=== PATIENT | male | born 1990 | race Caucasian/White ===

== ENCOUNTER → 2023-06-23 | Emergency (ER) | payer OTHER ==
--- NOTE | 2023-06-23 14:52 | RAD REPORT ---
EXAM DESCRIPTION: CT - Head C Spine Mpr Wo Con - 06/23/2023 2:24 pm CLINICAL HISTORY: Head and neck injury status post fall. Head and neck pain COMPARISON: None. TECHNIQUE: Computed axial tomography of the head and cervical spine was obtained. Sagittal and coronal reconstruction was performed. All CT scans are performed using dose optimization technique as appropriate and may include automated exposure control or mA/KV adjustment according to patient size. FINDINGS: An intracranial bleed is not seen. The ventricles are normal in caliber. No significant hypodensity within the brain. An extra-axial fluid collection is not noted. Fluid within the visualized sinuses and mastoids is not seen Avulsion fracture C7 spinous process. No additional fracture or dislocation noted IMPRESSION: No acute intracranial abnormality is seen. Avulsion fracture C7 spinous process has more of a chronic than acute appearance. This should be sushila elated clinically. If the patient continues to have symptoms to suggest intracranial /spinal cord pathology then MRI wou ld be recommended
--- NOTE | 2023-06-23 15:08 | RAD REPORT ---
EXAM DESCRIPTION: Teodoro Single View06/23/2023 2:33 pm CLINICAL HISTORY: Chest pain COMPARISON: none FINDINGS: The lungs appear clear of acute infiltrate. The heart is normal size IMPRESSION: No acute abnormalities displayed
--- NOTE | 2023-06-23 15:16 | EDPHYS ---
Physician Documentation [facility] Name: Virgil Soni Age: 32 yrs Sex: Male : 1990 Arrival Date: 06/23/2023 Time: 14:02 Bed 11 Private MD: ED Physician Luba Brown HPI: 06/22 14:26 This 32 yrs old Male presents to ER via [employer] with complaints of head injury. sp3 14:26 32-year-old male with no known significant past medical history presents from local [facility] for chief complaint headache and loss of consciousness secondary to mechanical ground-level fall he sustained yesterday at 4 PM. He also states that he has been having epigastric pain secondary to taking naproxen daily. There is supposed to change the medication but have not yet. This is not related to his chief complaint. Patient denies any other symptoms including fever, URI symptoms, muscular pain, back pain, abdominal pain, bleeding, or any other signs or symptoms on ROS at this time.. Historical: - Allergies: 14:09 No Known Allergies; mb9 - Home Meds: 14:09 None [Active]; mb9 - PMHx: 14:09 None; mb9 - PSHx: 14:09 None; mb9 - Immunization history:: Adult Immunizations up to date. - Social history:: Smoking status: Patient denies any tobacco usage or history of. ROS: 14:28 Constitutional: Negative for fever, chills, and weight loss, Eyes: Negative for injury, sp3 pain, redness, and discharge, ENT: Negative for injury, pain, and discharge, Neck: Negative for injury, pain, and swelling, Cardiovascular: Negative for chest pain, palpitations, and edema, Respiratory: Negative for shortness of breath, cough, wheezing, and pleuritic chest pain, Back: Negative for injury and pain, Skin: Negative for injury, rash, and discoloration, Psych: Negative for depression, anxiety, suicide ideation, homicidal ideation, and hallucinations, Allergy/Immunology: Negative for hives, rash, and allergies, Endocrine: Negative for neck swelling, polydipsia, polyuria, polyphagia, and marked weight changes, Hematologic/Lymphatic: Negative for swollen nodes, abnormal bleeding, and unusual bruising, 14:28 All other systems are negative, Exam: 14:28 Constitutional: This is a well developed, well nourished patient who is awake, alert, sp3 and in no acute distress. Head/Face: Normocephalic, atraumatic. Eyes: Pupils equal round and reactive to light, extra-ocular motions intact. Lids and lashes normal. Conjunctiva and sclera are non-icteric and not injected. Cornea within normal limits. Periorbital areas with no swelling, redness, or edema. ENT: Nares patent. No nasal discharge, no septal abnormalities noted. External auditory canals are clear. Oropharynx with no redness, swelling, or masses, exudates, or evidence of obstruction, uvula midline. Mucous membranes moist. Neck: Trachea midline, no thyromegaly or masses palpated, and no cervical lymphadenopathy. Supple, full range of motion without nuchal rigidity, or vertebral point tenderness. No Meningismus. Chest/axilla: Normal chest wall appearance and motion. Nontender with no deformity. No lesions are appreciated. Cardiovascular: Regular rate and rhythm with a normal S1 and S2. No gallops, murmurs, or rubs. Normal PMI, no JVD. No pulse deficits. Respiratory: Lungs have equal breath sounds bilaterally, clear to auscultation and percussion. No rales, rhonchi or wheezes noted. No increased work of breathing, no retractions or nasal flaring. Abdomen/GI: Soft, non-tender, with normal bowel sounds. No distension or tympany. No guarding or rebound. No evidence of tenderness throughout. Back: No spinal tenderness. No costovertebral tenderness. Full range of motion. Skin: Warm, dry with normal turgor. Normal color with no rashes, no lesions, and no evidence of cellulitis. MS/ Extremity: Pulses equal, no cyanosis. Neurovascular intact. Full, normal range of motion. Neuro: Awake and alert, GCS 15, oriented to person, place, time, and situation. Cranial nerves II-XII grossly intact. Motor strength 5/5 in all extremities. Sensory grossly intact. Cerebellar exam normal. Normal gait. Psych: Awake, alert, with orientation to person, place and time. Behavior, mood, and affect are within normal limits. Vital Signs: 14:09 BP 124 / 95; Pulse 74; Resp 16; Temp 98; Pulse Ox 100% ; Weight 68.04 kg; Height 5 ft. mb9 9 in. ; Pain 3/10; 15:40 BP 127 / 82; Pulse 56; Resp 16; Pulse Ox 99% on R/A; kd3 14:09 Body Mass Index 22.15 (68.04 kg, 175.26 cm) mb9 14:09 Pain Scale: Adult mb9 MDM: 14:13 Patient medically screened. sp3 14:28 Data reviewed: vital signs, nurses notes, radiologic studies. ED course: Patient likely sp3 has a closed head injury and minor concussion. I am not highly suspicious for intracranial hemorrhage, skull fracture or any other critical process. Will obtain CT scan of the head and C-spine and chest x-ray. If workup is negative we will safely discharge patient home. I have counseled patient on GERD and gastritis and have advised him to talk to the [facility] medical team to get his medication changed.. 15:15 ED course: Chronic C7 spinous process fracture noted. CT head is negative and there is sp3 no clinically significant C-spine fracture. Chest x-ray is also negative. We will safely discharge patient home at this time.. 06/22 14:13 Order name: CT Head C Spine; Complete Time: 15:11 sp3 06/22 14:13 Order name: XRAY Chest (1 view); Complete Time: 15:11 sp3 Administered Medications: No medications were administered Disposition Summary: 06/23/23 15:15 Discharge Ordered Notes: Location: Home sp3 Condition: Stable sp3 Diagnosis - Closed head injury sp3 Followup: sp3 - With: Private Physician - When: Upon discharge from the Emergency Department - Reason: Continuance of care Discharge Instructions: - Discharge Summary Sheet sp3 - Head Injury, Adult sp3 Forms: - Medication Reconciliation Form sp3 - Thank You Letter sp3 - Antibiotic Education sp3 - Prescription Opioid Use sp3 - Patient Portal Instructions sp3 - Leadership Thank You Letter sp3 Signatures: Dispatcher [employer] EDLuba Azevedo MD MD sp3 Rema Carr RN RN mb9
--- NOTE | 2023-06-23 15:16 | ER ---
Nurse's Notes [facility] Name: Virgil Soni Age: 32 yrs Sex: Male : 1990 Arrival Date: 06/23/2023 Time: 14:02 Bed 11 Private MD: Diagnosis: Closed head injury Presentation: 06/22 14:09 Chief complaint: Patient states: "I fell yesterday from standing and hit the back of my mb9 head. I lost consciousness and my head hurts. I also starting being dizzy and having intermittent chest pain.". Coronavirus screen: Vaccine status: Patient reports receiving the 2nd dose of the covid vaccine. Ebola Screen: No symptoms or risks identified at this time. Initial Sepsis Screen: Does the patient meet any 2 criteria? No. Patient's initial sepsis screen is negative. Does the patient have a suspected source of infection? No. Patient's initial sepsis screen is negative. Risk Assessment: Do you want to hurt yourself or someone else? Patient reports no desire to harm self or others. Onset of symptoms was June 23, 2023. 14:09 Method Of Arrival: [employer] mb9 14:09 Acuity: SKY 3 mb9 Historical: - Allergies: 14:09 No Known Allergies; mb9 - Home Meds: 14:09 None [Active]; mb9 - PMHx: 14:09 None; mb9 - PSHx: 14:09 None; mb9 - Immunization history:: Adult Immunizations up to date. - Social history:: Smoking status: Patient denies any tobacco usage or history of. Screenin:11 [facility] ED Fall Risk Assessment (Adult) History of falling in the last 3 months, mb9 including since admission Yes- single mechanical fall (1 pt) Confusion or Disorientation No (0 pts) Intoxicated or Sedated No (0 pts) Impaired Gait No (0 pts) Mobility Assist Device Used No (0 pt) Altered Elimination No (0 pt) Score/Fall Risk Level 3 or more points = High Risk Oriented to surroundings, Maintained a safe environment, Educated pt \\T\\ family on fall prevention, incl call for assistance when getting out of bed. Abuse screen: Denies threats or abuse. Nutritional screening: No deficits noted. Tuberculosis screening: No symptoms or risk factors identified. Assessment: 14:33 General: Appears in no apparent distress. Behavior is calm, cooperative. Neuro: Level kd3 of Consciousness is awake, alert, obeys commands, Oriented to person, place, time, situation. Cardiovascular: Patient's skin is warm and dry. Respiratory: Airway is patent Trachea midline Respiratory effort is even, unlabored, Respiratory pattern is regular, symmetrical. Vital Signs: 14:09 BP 124 / 95; Pulse 74; Resp 16; Temp 98; Pulse Ox 100% ; Weight 68.04 kg; Height 5 ft. mb9 9 in. ; Pain 3/10; 15:40 BP 127 / 82; Pulse 56; Resp 16; Pulse Ox 99% on R/A; kd3 14:09 Body Mass Index 22.15 (68.04 kg, 175.26 cm) mb9 14:09 Pain Scale: Adult mb9 ED Course: 14:08 Patient arrived in ED. mb9 14:09 Arm band placed on. mb9 14:10 Luba Brown MD is Attending Physician. sp3 14:11 Triage completed. mb9 14:11 Bed in low position. Call light in reach. Side rails up X 1. Client placed on mb9 continuous cardiac and pulse oximetry monitoring. NIBP monitoring applied. color television console monitor on. 14:24 CT Head C Spine In Process Unspecified. EDMS 14:32 Lily Adams, RN is Primary Nurse. kd3 14:35 XRAY Chest (1 view) In Process Unspecified. EDMS 15:40 Provided Education on: . kd3 15:40 No provider procedures requiring assistance completed. Patient did not have IV access kd3 during this emergency room visit. Administered Medications: No medications were administered Medication: 15:40 VIS not applicable for this client. kd3 Outcome: 15:15 Discharge ordered by . sp3 15:40 Discharged to home ambulatory, kd3 15:40 Condition: stable 15:40 Discharge instructions given to patient, Instructed on discharge instructions, follow up and referral plans. Demonstrated understanding of instructions, follow-up care, 15:41 Patient left the ED. kd3 Signatures: Dispatcher [employer] EDMS Luba Brown MD MD sp3 Lily Adams, RN RN kd3 Rema Carr RN RN mb9
[2023-06-23 16:28] VITALS: BP 127/82; TEMP 98; O2SAT 99
== END ==
LOC: ER 14:02
DX: S09.90XA Unspecified injury of head, initial encounter (principal); R10.13 Epigastric pain
CPT/HCPCS: 70450; 71045; 72125; 99284